=== PATIENT | male | born 1980 | race Caucasian/White ===

== ENCOUNTER 2017-05-31 18:58 | Emergency (ER) | payer BC, OTHER ==
[~2017-05-31] VITALS: Ht 175.3 cm; Wt 66.4 kg
[2017-05-31 19:01] VITALS: BP 103/68; PULSE 85; RESP 16; TEMP 98.6; O2SAT 98
[2017-05-31] MEDS ORDERED: PANT20TA2 PO (19:12)
[2017-05-31] MEDS ORDERED: TRAZ50TA12 PO (19:12)
[2017-05-31 19:22] VITALS: O2SAT 99
[2017-05-31] MEDS ORDERED: SODIUM CHLORIDE 0.9% FLUSH 10 ML FLUSH IV FLUSH PRN (19:30)
--- NOTE | 2017-05-31 19:34 | PD ---
HPI Chief Complaint: GI Complaint Time Seen by Provider: 19:10 Travel History International Travel<30 days: No Contact w/Intl Traveler<30days: No Traveled to known affect area: No History of Present Illness HPI 36-year-old male here for evaluation of diarrhea and dark stools. Patient has had loose bowel movements for the last 5 days. He states the bowel movements have been dark/black. He took a dose of Pepto-Bismol yesterday for the first time. He denies abdominal pain. No history of GI bleed. No history of abdominal surgeries. He is supposed to take pantoprazole for GERD, however has not been doing so. He reports upper endoscopy 2 years ago and was told that he has severe acid reflux, no peptic ulcers. No recent hospitalizations. No recent antibiotic use. No recent travel or camping. PFSH Past Medical History GERD: Yes Insomnia: Yes Tetanus Vaccination: Unknown Influenza Vaccination: No Past Surgical History Other Surgery: Yes (left shoulder metal plate) Social History Alcohol Use: Yes (social) Tobacco Use: No Substance Use: No Allergies-Medications (Allergen,Severity, Reaction): Coded Allergies: No Known Allergies (Unverified , 05/31/17) Reported Meds & Prescriptions Reported Meds & Active Scripts Active Reported Pantoprazole (Pantoprazole Sodium) 20 Mg Tab 20 Mg PO DAILY Trazodone (Trazodone HCl) 50 Mg Tab 50 Mg PO HS Review of Systems Except as stated in HPI: all other systems reviewed are Neg Physical Exam Narrative GENERAL: Well-developed, well-nourished, comfortable, no apparent distress. SKIN: Focused skin assessment warm/dry. HEAD: Atraumatic. Normocephalic. EYES: Pupils equal and round. No scleral icterus. No injection or drainage. ENT: Mucous membranes pink and dry. NECK: Trachea midline. No JVD. CARDIOVASCULAR: Regular rate and rhythm. RESPIRATORY: No accessory muscle use. Clear to auscultation. Breath sounds equal bilaterally. GASTROINTESTINAL: Abdomen soft, nontender, nondistended. RECTUM: No masses, no fissures, no hemorrhoids, heme-negative black stool. MUSCULOSKELETAL: No obvious deformities. No clubbing. No cyanosis. No edema. NEUROLOGICAL: Awake and alert. No obvious cranial nerve deficits. Motor grossly within normal limits. Normal speech. PSYCHIATRIC: Appropriate mood and affect; insight and judgment normal. Data Data Last Documented VS Vital Signs Date Time Temp Pulse Resp B/P Pulse Ox O2 Delivery O2 Flow Rate FiO2 05/31/17 19:56 71 18 105/70 97 Room Air 05/31/17 19:01 98.6 Orders Complete Blood Count With Diff (05/31/17 19:20) Comprehensive Metabolic Panel (05/31/17 19:20) Lipase (05/31/17 19:20) Prothrombin Time / Inr (Pt) (05/31/17 19:20) Act Partial Throm Time (Ptt) (05/31/17 19:20) Iv Access Insert/Monitor (05/31/17 19:20) Ecg Monitoring (05/31/17 19:20) Oximetry (05/31/17 19:20) Sodium Chloride 0.9% Flush (Ns Flush) (05/31/17 19:30) Stool Ova And Parasite Screen (05/31/17 19:20) C Diff Toxin Pcr (05/31/17 19:20) Labs Laboratory Tests Test 05/31/17 19:44 White Blood Count 6.9 TH/MM3 Red Blood Count 5.18 MIL/MM3 Hemoglobin 14.6 GM/DL Hematocrit 44.2 % Mean Corpuscular Volume 85.4 FL Mean Corpuscular Hemoglobin 28.3 PG Mean Corpuscular Hemoglobin 33.1 % Concent Red Cell Distribution Width 11.7 % Platelet Count 175 TH/MM3 Mean Platelet Volume 9.1 FL Neutrophils (%) (Auto) 76.3 % Lymphocytes (%) (Auto) 10.1 % Monocytes (%) (Auto) 11.2 % Eosinophils (%) (Auto) 1.8 % Basophils (%) (Auto) 0.6 % Neutrophils # (Auto) 5.3 TH/MM3 Lymphocytes # (Auto) 0.7 TH/MM3 Monocytes # (Auto) 0.8 TH/MM3 Eosinophils # (Auto) 0.1 TH/MM3 Basophils # (Auto) 0.0 TH/MM3 CBC Comment DIFF FINAL Differential Comment Prothrombin Time 11.2 SEC Prothromb Time International 1.0 RATIO Ratio Activated Partial 26.9 SEC Thromboplast Time Sodium Level 135 MEQ/L Potassium Level 3.8 MEQ/L Chloride Level 102 MEQ/L Carbon Dioxide Level 27.9 MEQ/L Anion Gap 5 MEQ/L Blood Urea Nitrogen 13 MG/DL Creatinine 1.10 MG/DL Estimat Glomerular Filtration 77 ML/MIN Rate Random Glucose 106 MG/DL Calcium Level 8.7 MG/DL Total Bilirubin 0.4 MG/DL Aspartate Amino Transf 24 U/L (AST/SGOT) Alanine Aminotransferase 36 U/L (ALT/SGPT) Alkaline Phosphatase 61 U/L Total Protein 7.9 GM/DL Albumin 3.8 GM/DL Lipase 204 U/L [facility] Medical Decision Making Medical Screen Exam Complete: Yes Emergency Medical Condition: Yes Differential Diagnosis Melena/upper GI bleed, diarrhea, infectious diarrhea Narrative Course Vital signs show heart rate 85, blood pressure 103/68, pulse ox 98% on room air , oral temp of 98.6 reason Fahrenheit. CBC shows WBC 6.9, hemoglobin 14.6, hematocrit 44.2, platelets 175. CMP is unremarkable. Lipase is 204. Stool sample sent for C. difficile PCR as well as ova and parasites, however the results will not be back today. Stool is heme negative and black. Patient did take a dose of Pepto-Bismol yesterday. His vital signs are normal and his H&H is normal at 14.6/44.2. Given heme negative stool, I do not believe his melena secondary to GI bleed. His abdominal exam is benign without any tenderness or peritoneal signs. Patient made aware of all findings. He is stable for discharge home with outpatient follow-up with his primary care physician this week. He was informed on when to return to the emergency department. He verbalizes understanding and agreement with plan. [facility] Point of Care Internal Pos. & Neg. Controls: Passed Fecal Specimen Occult Blood: Negative Comment Heme-negative, black stool Diagnosis Primary Impression: Diarrhea Qualified Code: R19.7 - Diarrhea, unspecified type Additional Impression: Melena Referrals: Primary Care Physician 3 days Additional Instructions: Follow-up with your primary care physician this week. Return to the emergency department for worsening symptoms or any other concerns. Scripts Pantoprazole (Protonix)40 Mg Tab40 Mg PO DAILY #30 TAB Ref 0 Prov:Sg Dai MD 05/31/17 Disposition: 01 DISCHARGE HOME Condition: Stable Sg Dai MD May 31, 2017 19:34
[2017-05-31 19:51] LABS: AUTOMATED NEUTROPHIL # 5.3 TH/MM3 (1.8-7.7); BASOPHIL % 0.6 % (0.0-2.0); EOSINOPHIL # 0.1 TH/MM3 (0-0.4); EOSINOPHIL % 1.8 % (0.0-4.0); HEMATOCRIT 44.2 % (39.0-51.0); HEMO FLAGS DIFF FINAL; LYMPH % 10.1 % (9.0-44.0); LYMPHOCYTE # 0.7 TH/MM3 (1.0-4.8); MEAN CELL VOLUME 85.4 FL (80.0-100.0); MEAN CORPUSCULAR HEMOGLOBIN 28.3 PG (27.0-34.0); MEAN CORPUSCULAR HGB CONC 33.1 % (32.0-36.0); MONO % 11.2 % (0.0-8.0); NEUT % 76.3 % (16.0-70.0); PLATELET COUNT 175 TH/MM3 (150-450); RED BLOOD COUNT 5.18 MIL/MM3 (4.50-5.90); RED CELL DISTRIBUTION WIDTH 11.7 % (11.6-17.2); WHITE BLOOD COUNT 6.9 TH/MM3 (4.0-11.0)
[2017-05-31 19:56] VITALS: BP 105/70; PULSE 71; RESP 18; O2SAT 97
[2017-05-31 19:58] LABS: CHLORIDE 102 MEQ/L (98-107); POTASSIUM 3.8 MEQ/L (3.5-5.1); SODIUM (NA) 135 MEQ/L (136-145)
[2017-05-31 20:02] LABS: ANION GAP 5 MEQ/L (5-15); BICARBONATE 27.9 MEQ/L (21.0-32.0); BLOOD UREA NITROGEN 13 MG/DL (7-18)
[2017-05-31 20:04] LABS: APTT (PATIENT) 26.9 SEC (24.3-30.1); PROTHROMBIN TIME - PATIENT 11.2 SEC (9.8-11.6)
[2017-05-31 20:05] LABS: ALT (GPT) 36 U/L (12-78); AST (GOT) 24 U/L (15-37); GLOMERULAR FILTRATION RATE 77 ML/MIN (>89)
[2017-05-31 20:06] LABS: TOTAL BILIRUBIN ADULT 0.4 MG/DL (0.2-1.0)
[2017-05-31 20:08] LABS: ALKALINE PHOSPHATASE 61 U/L (45-117)
[2017-05-31] MEDS ORDERED: PROT40TA PO (20:59)
[2017-05-31 22:09] VITALS: BP 106/70
[2017-06-01 15:54] LABS: C. DIFF TOXIN PCR INVALID (NEGATIVE)
== END 2017-05-31 22:15 | disposition home or self-care (01) ==
LOC: PHED 18:58
DX: R19.7 Diarrhea, unspecified (principal); K92.1 Melena
CPT/HCPCS: 80053; 83690; 85025; 85610; 85730; 87328; 87329; 87493; 99283